=== PATIENT | female | born 1970 | race Caucasian/White ===

== ENCOUNTER 2016-07-07 06:28 | Observation (INO) | payer SELFPAY ==
[~2016-07-07] VITALS: Ht 165.1 cm; Wt 109.9 kg
--- NOTE | ~2016-07-07 | ESTC ---
Cardiac Perfusion Imaging Demographics Patient Name TODD Gracia Gender Female Patient Number [id number] Race Visit Number [id number] Ethnicity Corporate ID Room Number G6340 Accession Number [id number] Height Date of 1970 Weight Age 45 year(s) BSA Referring Physician Dax Hummel MD Interpreting Alex Jarvis Date of study 07/08/2016 Physician Supervising MD/MLP Alex Jarvis NM Technologist MD Ordering Physician Dominick Fajardo Stress Rachele Moore RVT, cell phone repair technician RDCS Stress ECG Reading [facility] Simona Nurse Isabel Youssef RN Physician MD Procedure Procedure Type: Nuclear Stress Test:Cardiolite Stress Test Procedure Start time: 07/08/2016 07:04 Indications: Chest pain and Exertional Chest Pain. Conclusions Summary Perfusion Images: The overall quality of the study is good. Left ventricular cavity is noted to be normal on the stress and normal on the rest images. There is no evidence of abnormal lung activity. The right ventricle is not visualized an cannot be assessed. Impression ECG portion of exercise stress test is clinically negative for ischemia by diagnostic criteria. The Dawn Treadmill Score was 7. This corresponds to a low risk stress test. Myocardial perfusion imaging is normal. Overall left ventricular systolic function was normal without regional wall motion abnormalities. Calculated LVEF is 71% and TID ratio is 1.06. There are no previous studies for comparison. Stress Protocols Resting ECG NSR Pre-stress physical exam: Patient assessed by Dr. Lentz prior to testing. Predicted HR: 173 bpm ECG Findings No ECG changes suggestive of ischemia. Arrhythmias No rhythm abnormality. Symptoms Fatigue at peak stress, MCCARTHY at peak stress. Stress Interpretation The electrocardiographic portion of the stress test was negative for ischemia. Blood pressure response was normal, heart rate response was normal for exertion. The Dawn Treadmill Score was 7. This corresponds to a low risk stress test. Imaging Results Summed scores - Summed stress score: 8 - Summed rest score: 8 - Summed difference score: 0 Stress ejection Ejection fraction:72 % EDV :88 ml ESV :25 ml Stroke volume :63 ml LV mass :124 gr Imaging Protocols Rest Stress Isotope:Tc99m Sestamibi IV Isotope: Tc99m Sestamibi IV Isotope dose:14.2 mCi Isotope dose:44 mCi Date:07/08/2016 06:55 Date:07/08/2016 08:29 Technique: SPECT Technique: Gated Supine SPECT Supine IV remains in place after procedure. Scan Time:20 minutes post injection Scan Time:15-30 minutes post injection Medical History Admission Data Admission date: 07/07/2016 Admission Time: 08:45 Hospital Status: Inpatient. Signatures dtt: SIMONA AGGARWAL dtd: 07/08/16 0704 Physician Self Edit
--- NOTE | ~2016-07-07 | HP ---
PATIENT'S NAME: DAISY BROOKS [facility] AGE: 45 Y [address] ROOM: [place] [id number] LOCATION: GPCU ADMIT DATE: 07/07/2016 History & Physical DISCHARGE DATE: FAMILY PHYSICIAN: Cory Verduzco MD ATTENDING PHYSICIAN: VALE HURTADO V DATE OF SERVICE: CHIEF COMPLAINT: Chest pain, hypertensive crisis. HISTORY OF PRESENT ILLNESS: This is a 45-year-old female with morbid obesity and no significant past medical history except for asthma, admitted for a chest pain workup. The patient states that she has been having chest tightness, it is little different than what she gets over the past 2 weeks with her asthma exacerbations. However, this chest pain continued to worsen including waking her up from her sleep in the early hours of this morning and subsequently coming to the emergency room. The patient describes the pain as sharp, localized to the left side of her chest. Described some associated dizziness, however denies any shortness of breath with it. Denies any radiation of the pain as well. The pain is not necessarily related to exertion and relieved by rest or nitroglycerin. Otherwise, the patient also mentioned cough which is typical for her with her asthma symptoms, however, denies any sputum production. Denies any fever, chills, nausea, vomiting, diarrhea, or constipation. PAST MEDICAL HISTORY: Asthma. FAMILY HISTORY: Father of heart problems, mother with history of atrial fibrillation. SOCIAL HISTORY: No history of smoking, drinking, or drug use. 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 REVIEW OF SYSTEMS: 10-point review of systems was conducted and were all negative except as mentioned in the HPI. PHYSICAL EXAMINATION: VITAL SIGNS: Blood pressure on presentation 200/100, pulse 68, respiratory rate 18, temperature 97.1, saturation 100% on room air. GENERAL: The patient is awake, alert, and oriented x3, in no acute distress. PATIENT'S NAME: DAISY BROOKS [facility] AGE: 45 Y [address] ROOM: [place] [id number] LOCATION: GPCU ADMIT DATE: 07/07/2016 History & Physical DISCHARGE DATE: FAMILY PHYSICIAN: Coyr Verduzco MD ATTENDING PHYSICIAN: VALE HURTADO V HEENT: Moist mucous membranes. No scleral icterus or conjunctival pallor noted. SKIN: Without lesions or rash. HEART: S1 and S2. Regular rate and rhythm. LUNGS: Clear to auscultation bilaterally. ABDOMEN: Soft, nontender, nondistended. Positive bowel sounds. NEURO: Grossly nonfocal. MUSCULOSKELETAL: No joint pain. No muscle pain noted. LABORATORY DATA: Initial troponin negative. EKG nondiagnostic. D-dimer negative as well. ASSESSMENT AND PLAN: 1. Chest pain, acute coronary syndrome ruled out. Initial troponin negative. EKG nondiagnostic. We will get a repeat EKG and continue to trend troponin 2 more times. Once blood pressure is controlled, we will get a Lexiscan stress in a.m. Of note, the patient has had a stress test 4 years ago after a similar presentation which was negative. 2. Hypertensive crisis. The patient without a known history of hypertension. We will start on low dose lisinopril 5 mg daily and titrate off nitroglycerin drip. 3. Asthma. Not having from that particular lead yet. We will continue her home medications. 4. Deep venous thrombosis prophylaxis. We will use subcutaneous heparin and ambulate. MD SARAH METCALF/matt /[id number] D: 747 T: 923 HISTORY & PHYSICAL
--- NOTE | ~2016-07-07 | ER ---
PATIENT'S NAME: DAISY BROOKS [facility] AGE: 45 Y [address] ROOM: [place] [address] LOCATION: GPCU ADMIT DATE: 07/07/2016 ER/Outpatient Report DISCHARGE DATE: FAMILY PHYSICIAN: Cory Verduzco MD ATTENDING PHYSICIAN: VALE HURTADO V Time of Arrival: 0628 hours. Time of Evaluation: 0640 hours. IDENTIFICATION: A 45-year-old female. CHIEF COMPLAINT: Chest pressure. HISTORY OF PRESENT ILLNESS: The patient is a 45-year-old female, who presents with complaints of left- sided chest pain. She and her drove from [place], [place]. She has had this pain off and on for a week, but then since about 3:00 a.m., she has had more constant chest pain and worse than it has been. She has some back pain, and she thought that this was just related to her back pain and her neck pain, but today, it has been different. Associated with shortness of breath, lightheadedness, nausea, but no vomiting. No diaphoresis. Pertinent cardiac risk factors include obesity, positive family history, borderline hyperlipidemia, and glucose intolerance. Currently, the patient rates her pain 2 to 3 out of 10 on the pain scale. ALLERGIES: AUGMENTIN, CEFTIN, BENADRYL, AND CODEINE. CURRENT MEDICATIONS: 1. Lexapro. 2. Zyrtec. 3. Advair. MEDICAL PROBLEMS: Glucose intolerance, borderline hyperlipidemia, depression, asthma. PRIOR SURGERIES: Normal vaginal deliveries x4, she is a , 2 spontaneous ABs. FAMILY HISTORY: Grandfather with premature coronary artery disease. Father was secondary to PR but secondary to other comorbid complications according to the patient. Aunt with coronary artery disease. PATIENT'S NAME: DAISY BROOKS [facility] AGE: 45 Y [address] ROOM: [place] [address] LOCATION: GPCU ADMIT DATE: 07/07/2016 ER/Outpatient Report DISCHARGE DATE: FAMILY PHYSICIAN: Cory Verduzco MD ATTENDING PHYSICIAN: VALE HURTADO V SOCIAL HISTORY: The patient is . Does not work outside the home. Lives in [place], [place]. Tobacco use, denies. Alcohol use, denies. Drug use, denies. REVIEW OF SYSTEMS: All systems reviewed and negative other than what is noted in the HPI. PHYSICAL EXAMINATION: VITAL SIGNS: Height 5 feet 5 inches, weight 110 kg, blood pressure 200/95, pulse 77, respirations 18, temperature 96.4, sats 98% on room air. GENERAL: A 45-year-old female, in no acute distress. HEENT: Head: Normocephalic, atraumatic. Ears: TMs translucent both ears. Pupils are equal and reactive to light and accommodation. Extraocular movements intact. Nose: Mucosa pink. No lesions or drainage. Mouth: No lesions. Pharynx benign. NECK: Supple. No lymphadenopathy. LUNGS: Clear to auscultation. Breath sounds are equal. HEART: Regular rate and rhythm. ABDOMEN: Soft, nondistended, protuberant, nontender. SKIN: [place], warm, and dry. No lesions or rashes noted. NEURO: The patient is alert and oriented x4. Cranial nerves 2 through 12 grossly intact. Motor strength 5/5 throughout. Sensation is intact to light touch. Blood pressure after being started on nitroglycerin and prior to going to the floor is 122/68, heart rate 76. LABORATORY DATA AND X-RAYS: Chest x-ray one-view, no acute process, pending Radiology over-read. Sodium 140, potassium 4.0, chloride 107, CO2 of 23, BUN 15, creatinine 0.8, blood sugar 126. Liver enzymes normal. Magnesium 2.1. CPK 74, CK-MB less than 0.5, troponin I less than 0.040. HCG less than 1. ProBNP 49. D-dimer is 0.28. Hemoglobin 14.5, hematocrit 43.3, platelets 197, white count 9.6. INR 1.0. EKG: Normal sinus rhythm at 74 beats per minute, nonspecific ST-T wave changes with T-wave inversions are noted in leads V1 to V3. No prior EKG available for comparison. EMERGENCY DEPARTMENT COURSE: The patient was given 4 baby aspirin and 1 sublingual nitroglycerin with complete resolution of her pain. She was started on a nitroglycerin drip and remained stable and pain free throughout her stay here in the emergency room. IMPRESSION AND PLAN: 1. Chest pain. Plan for admission for serial EKG and enzymes. 2. Borderline hyperlipidemia. PATIENT'S NAME: DAISY BROOKS [facility] AGE: 45 Y [address] ROOM: [place] [address] LOCATION: [facility] ADMIT DATE: 07/07/2016 ER/Outpatient Report DISCHARGE DATE: FAMILY PHYSICIAN: Cory Verduzco MD ATTENDING PHYSICIAN: VALE HURTADO V 3. Hypertension. Blood pressure improved with nitroglycerin drip. The patient states that normally she has low blood pressure, not high. 4. History of asthma. 5. Depression. The patient will be admitted per the hospitalist service. Dr. Rodriguez will evaluate the patient with cardiology consultation. MD KAREN LOPEZ/matt /[id number] d: 07/07/162126 t: 07/09/16 1433, OUTPATIENT REPORT
--- NOTE | ~2016-07-07 | DS ---
PATIENT'S NAME: DAISY VALLADARES [facility] AGE: 45 Y [address] ROOM: [place] [address] LOCATION: GPCU ADMIT DATE: 07/07/2016 Discharge Summary DISCHARGE DATE: 07/08/2016 FAMILY PHYSICIAN: Cory Verduzco MD ATTENDING PHYSICIAN: Anuel Garcia V PRINCIPAL DISCHARGE DIAGNOSIS: Chest pain. SECONDARY DIAGNOSES: 1. Hypertensive urgency. 2. Asthma. 3. Hypoglycemia. 4. 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 5. Obesity. 6. Hypercholesterolemia. 7. Depression. CONSULTATIONS: None. PROCEDURES: Lexiscan: The test was interpreted by Dr. Simona Johnson. Good quality of study overall with left ventricular cavity. Normal on stress and rest images. No evidence of abnormal lung activity. Right ventricle not visualized. The EKG portion of stress test clinically negative for ischemia by diagnostic criteria. Dawn treadmill score was 7 corresponding to a low- risk status. Myocardial perfusion imaging normal. Calculated left ventricular ejection fraction 71%. COMPLICATIONS: None. BRIEF HISTORY: Ms. Valladares is a 45-year-old female who was admitted due to persistent chest pain. Please see the history and physical for details. She has no prior history of hypertension. The blood pressure was 200/100 on admission. She was admitted for further evaluation and management. After a negative stress test, she could go home and she is in agreement with discharge, but we need to educate her 1st about her hyperglycemia with elevated hemoglobin A1c of 6.8% which is consistent with a diagnosis of diabetes. She says her asthma was requiring steroids frequently in the fall, so this may be partially steroid induced, however, I told her she still should make diet and exercise changes in her life and this will help. I have explained to her low-carb diet, choice of low-glycemic foods, walking 30 minutes every morning. We will have the chemical educator see her and provide her with a glucometer. She is started on lisinopril on admission 5 mg, her blood pressures has PATIENT'S NAME: DAISY VALLADARES [facility] AGE: 45 Y [address] ROOM: [place] [address] LOCATION: GPCU ADMIT DATE: 07/07/2016 Discharge Summary DISCHARGE DATE: 07/08/2016 FAMILY PHYSICIAN: Cory Verduzco MD ATTENDING PHYSICIAN: Anuel Garcia V improved to 119/59. Earlier this morning, it was 134/72. She was instructed to hold lisinopril if her blood pressure is less than 110. INSTRUCTIONS AT DISCHARGE: Cardiac and [place] [employer] diet, low carb. Activity as tolerated and walking daily. Followup appointment with Dr. Reema Drake on WednesdayJuly 15 at 2 p.m. She is instructed to come early to do paperwork. DISCHARGE MEDICATIONS: 1. Lisinopril 5 mg p.o. daily. 2. Lexapro 10 mg p.o. daily. 3. Advair 250/50 Diskus one puff twice daily. 4. Albuterol 1 puff every 8 hours p.r.n. wheezing or dyspnea. 5. Zyrtec 10 mg p.o. daily. 6. Ibuprofen 400 to 600 mg p.o. daily p.r.n. pain. CONDITION ON DISCHARGE: Good. MELISSA SORENSEN MD LM/matt /[id number] d: 07/09/16 1333 t: 07/13/16 1425, DISCHARGE SUMMARY
[2016-07-07 06:57] LABS: BASOPHIL # 0.1 K/uL (0.0-0.2); BASOPHIL % 1.3 %; EOSINOPHIL # 0.5 K/uL (0.0-0.5); EOSINOPHIL % 5.6 %; HEMATOCRIT 43.3 % (33.0-46.0); HEMOGLOBIN 14.5 g/dL (10.0-15.0); IMMATURE GRANULOCYTE # 0.1 K/uL (0.0-0.3); IMMATURE GRANULOCYTE % 0.5 %; LYMPHOCYTE # 2.7 K/uL (0.8-4.0); LYMPHOCYTE % 27.9 %; MCH 27.9 pg (27.0-34.0); MCHC 33.5 gm/dL (32.0-36.5); MCV 83.4 fl (83.0-98.0); MONOCYTE # 0.6 K/uL (0.0-1.0); MONOCYTE % 5.8 %; NEUTROPHIL # (ANC) 5.6 K/uL (1.8-7.8); NEUTROPHIL % 58.9 %; NRBC % 0 /100WBC (0-0.00); PLATELET COUNT 197 K/uL (150-450); RBC 5.19 M/uL (3.50-5.50); RDW-CV 12.8 % (11.9-14.6); WBC 9.6 K/uL (4.0-11.0)
[2016-07-07 07:05] LABS: PTT 25 SECONDS (25-32)
[2016-07-07 07:29] LABS: ALBUMIN 3.6 gm/dL (3.5-5.0); ALK PHOS 77 IU/L (33-138); ALT 23 IU/L (12-78); AST 14 IU/L (10-40); BLOOD UREA NITROGEN 15 mg/dL (6-24); CALCIUM 8.8 mg/dL (8.5-10.5); CHLORIDE 107 mMol/L (96-110); CO2 23 mMol/L (22-32); CPK 74 IU/L (21-215); CREATININE 0.8 mg/dL (0.5-1.1); ESTIMATED GFR (MDRD EQUATION) > 60; MAGNESIUM 2.1 mg/dL (1.3-2.6); SODIUM 140 mMol/L (135-145); TOTAL BILIRUBIN 0.7 mg/dL (0.0-1.5); TOTAL PROTEIN 7.2 g/dL (6.0-8.4)
[2016-07-07] MEDS ORDERED: ADVAIR 250-501 EACH INH (10:14)
[2016-07-07] MEDS ORDERED: ZYRTEC10 MG PO (10:16)
[2016-07-07] MEDS ORDERED: LEXAPRO20 MG PO (10:16)
[2016-07-07] MEDS ORDERED: PROAIR HFA8.5 GM INH (10:16)
[2016-07-07] MEDS ORDERED: ADVIL200 MG PO (10:17)
--- NOTE | 2016-07-07 10:38 | NUR ---
Patient is 45 yo female admitted this am from the ER. patient [place] her by [place]. she has been having chest pressure for a few weeks, states she thought it was her asthma. this am about 3 am, she awoke and was having some sharp pains and thought it should be checked out. her brought her from home to the ER here. She is advised that she should not drive by a hospital when having chest pains as she could go into a cardiac arrest on the way if it truly is a heart attack. IV is infusing in right hand without erythema or edema noted at site. does have nitroglycerin infusing per pump. pneumatics are on. education is given as documented. patient and deny questions. allergy bracelet is on. call ight is within reach. Report is given to Dominic Gamboa RN.
--- NOTE | 2016-07-07 16:38 | NUR ---
Significant Event: A/OX3, VSS ON ROOM AIR. PT. IS UP AD JOSE DANIEL IN ROOM, WALKED IN HALLS X1 THIS AFTERNOON. NO COMPLAINTS OF PAIN, CHEST PAIN. TYLENOL GIVEN IN ED FOR A HEADACHE. NPO AFTER MIDNIGHT FOR LEXISCAN STRESS TEST IN AM. PT. STARTED ON SUB-Q HEPARIN, HOME MEDS REORDERED. NTG DRIP OFF, SBP TO REMAIN <150 & CHEST PAIN FREE. SLIV TO RIGHT HAND. Follow up: STRESS TEST IN AM.
--- NOTE | 2016-07-08 05:40 | NUR ---
Significant Event: A&Ox3. VSS and remains on RA. No c/o CP and SBP remained below 150. Pt is up ad alicia ind in room. No c/o headache. Pt very anxious about stress test today. Pt on SQ heparin for anti-coag. Pt expected to be d/c'd after Lexiscan depending on results. Follow up:
--- NOTE | 2016-07-08 11:30 | NUR ---
Introduced self and role of care management to patient and . They live in [facility]. She states that she is able to do all her own ADL's. Her family is available to assist as needed. I did inquire if she had any type of medical insurance as we have her listed self pay. She states that they belong to a [employer] group. She states that all the bill will come to them and then they turn them into the [employer] group and they then pay them. She plans on returning home on discharge. She denies any needs at this time. Will continue to follow.
--- NOTE | 2016-07-08 15:13 | NUR ---
Significant Event: PT HAD LEXISCAN TODAY, TEST NEG AWAIT DC ORDERS. Follow up:
[2016-07-08] MEDS ORDERED: PRINIVIL (ZESTRI5 MG PO (16:56)
--- NOTE | 2016-07-08 17:01 | NUR ---
Diabetes Consult: PAtient is being dismissed to home. Nursing staff call to report patient's A1C came back as 6.8%, newly diagnosed with diabetes. Upon arrival the patient is dressed and ready to be discharged. Nursing reports she is to return and establish care with Dr. Drake July 15 at 2 p.m. The patient will attempt lifestyle changes to control her diabetes. The patient is receptive to outpatient diabetes education. She is traveling from [place] and would be receptive to a diabetes appointment on July 15 to avoid making two trips for education. Will request orders from Dr. Drake to provide outpatient education and call the patient if orders approved. Patient was provided with a [employer] glucometer and 40 test strips. She was instructed to test blood sugars fasting and 2 hours post prandial for the next week. Patient verbalized understanding of her instructions. She reports having a history of gestational diabetes 10 years ago. Patient was provided with a diabetes booklet and tentatively scheduled for an outpatient appointment with CDE on July 15 at 1100.
--- NOTE | 2016-07-08 17:31 | NUR ---
d-dr ord pt dc i-nurse did teaching on all meds with new one explained and info given, appts set up for dr and diabetic ed, aiden came and talked to pt and gave glucometer and taught on that, iv dcd intact, r-pt has no questions p-ta took pt to car per wc ok
== END 2016-07-08 17:25 | disposition disaster alternative care site (69) ==
LOC: GMED 06:28 → GPCU 08:45
PROVIDERS: Family Medicine; ADMIT Internal Medicine
DX: R07.9 Chest pain, unspecified (principal); I16.0 Hypertensive urgency; E16.2 Hypoglycemia, unspecified; E11.9 Type 2 diabetes mellitus without complications; E66.9 Obesity, unspecified; E78.00 Pure hypercholesterolemia, unspecified; F32.9 Major depressive disorder, single episode, unspecified; J45.909 Unspecified asthma, uncomplicated; Z79.899 Other long term (current) drug therapy; Z88.6 Allergy status to analgesic agent; Z88.8 Allergy status to other drugs, medicaments and biological substances
CPT/HCPCS: A9500; G0378; J1644